=== PATIENT | male | born 1995 | race Caucasian/White ===

== ENCOUNTER 2017-08-20 17:41 | Emergency (ER) | payer SELFPAY ==
[~2017-08-20] VITALS: Ht 193 cm; Wt 95.2 kg
[2017-08-20 18:52] LABS: BASOPHIL % 0.2 % (0-2); PLATELET COUNT 315 x10^3mcL (130-400); RED CELL DISTRIBUTION WIDTH 14.1 % (11.5-14.5)
[2017-08-20 18:59] LABS: CALCIUM 9.1 mg/dL (8.5-10.1); CHLORIDE SERUM 106 mmol/L (98-107); CREATININE SERUM 1.1 mg/dL (0.7-1.3); GFR1 > 60 mL/min; GLUCOSE SERUM 92 mg/dL (74-106); POTASSIUM SERUM 3.6 mmol/L (3.5-5.1); SODIUM SERUM 145 mmol/L (136-145)
[2017-08-20 19:04] LABS: ALBUMIN 4.5 g/dL (3.4-5.0); ALKALINE PHOSPHATASE 93 U/L (46-116); ALT/SGPT 26 U/L (16-63); AMYLASE 38 U/L (25-115); AST/SGOT 31 U/L (15-37); BILIRUBIN TOTAL 0.33 mg/dL (0.20-1.00); LIPASE 153 IU/L (73-393); MAGNESIUM 2.2 mg/dL (1.8-2.4)
[2017-08-20 19:07] LABS: TOTAL PROTEIN, SERUM 8.4 g/dL (6.4-8.2)
[2017-08-20 19:37] VITALS: BP 150/103
[2017-08-20 19:55] LABS: UA SPECIFIC GRAVITY <=1.005 (1.005-1.035); microscopic required? YES; urine erythrocyte TRACE (NEGATIVE)
[2017-08-20 20:06] LABS: AMPHETAMINE QUAL UR NONE DETECTED (NEG <=1000)
== END 2017-08-20 19:25 | disposition left against medical advice (07) ==
LOC: ED 17:41
PROVIDERS: Emergency Medicine
DX: F10.129 Alcohol abuse with intoxication, unspecified (principal)
CPT/HCPCS: G0480; J3411; J3475; J3490; J7030; Q0092

== ENCOUNTER 2017-09-12 01:47 | Emergency (ER) | payer MEDICAID ==
[~2017-09-12] VITALS: Ht 193 cm; Wt 97.5 kg
[2017-09-12 02:28] LABS: PLATELET COUNT 274 x10^3mcL (130-400); RED CELL DISTRIBUTION WIDTH 13.4 % (11.5-14.5)
[2017-09-12 02:30] LABS: BASOPHIL % 5.3 % (0-2); CALCIUM 8.7 mg/dL (8.5-10.1); CHLORIDE SERUM 108 mmol/L (98-107); CREATININE SERUM 0.9 mg/dL (0.7-1.3); GFR1 > 60 mL/min; GLUCOSE SERUM 99 mg/dL (74-106); SODIUM SERUM 145 mmol/L (136-145)
[2017-09-12 02:36] LABS: ALBUMIN 4.1 g/dL (3.4-5.0); ALKALINE PHOSPHATASE 81 U/L (46-116); ALT/SGPT 48 U/L (16-63); AST/SGOT 44 U/L (15-37); BILIRUBIN TOTAL 0.2 mg/dL (0.20-1.00); TOTAL PROTEIN, SERUM 7.7 g/dL (6.4-8.2)
[2017-09-12 08:01] VITALS: BP 126/77
== END 2017-09-12 08:01 | disposition home or self-care (01) ==
LOC: ED 01:47
PROVIDERS: Emergency Medicine
DX: F10.129 Alcohol abuse with intoxication, unspecified (principal); I10 Essential (primary) hypertension; F90.9 Attention-deficit hyperactivity disorder, unspecified type
CPT/HCPCS: 36415; G0480; J1885